=== PATIENT | male | born 1955 | race Caucasian/White ===

== ENCOUNTER 2017-10-27 09:46 | Inpatient (IN) | payer OTHER ==
--- NOTE | 2017-09-29 12:01 | PAT Medication Instructions ---
Service Date Sep 29, 2017. Current Home Medication List Acetaminophen (Tylenol), 1,000 MG PO PRN Eye Drops (Eye Drops), 1 DROP OPB BID Eye Drops (Eye Drops), 1 DROP OPB BID Lorazepam (Ativan), 0.5 MG PO BID Psyllium (Metamucil), 1 DOSE PO QPM [Losartan Hctz], 1 TAB PO QPM Medication Instructions For Your Scheduled Surgery - Hold the following medications 24 hours prior to surgery: [Losartan Hctz], 1 TAB PO QPM - Take the following medications the morning of surgery with a sip of water: Eye Drops (Eye Drops), 1 DROP OPB BID Eye Drops (Eye Drops), 1 DROP OPB BID Lorazepam (Ativan), 0.5 MG PO BID Acetaminophen (Tylenol), 1,000 MG PO PRN (okay to take up to 4 hours prior to surgery if needed) - Take the following medications as scheduled the night before surgery: Psyllium (Metamucil), 1 DOSE PO QPM Eye Drops (Eye Drops), 1 DROP OPB BID Eye Drops (Eye Drops), 1 DROP OPB BID Lorazepam (Ativan), 0.5 MG PO BID Acetaminophen (Tylenol), 1,000 MG PO PRN (if needed) If you have any questions please call us at [phone] or [phone] or [phone]
--- NOTE | 2017-09-29 12:40 | DIAGNOSTIC IMAGING REPORT ---
CHEST PREADMISSION(PA/LAT) HISTORY: 62 years-old Male PAT preoperative exam. No acute chest complaints COMPARISON: None available TECHNIQUE: PA and lateral views of the chest FINDINGS: Cardiac silhouette is upper limits of normal. There is atherosclerosis of the and tortuosity aorta. No pneumothorax, pleural effusion or focal airspace consolidation. Linear subsegmental opacities of the left lung base and right midlung suggest areas of atelectasis or scarring. The bones appear grossly intact. Cholecystectomy clips are noted. Degenerative changes are seen throughout the spine. IMPRESSION: No acute cardiopulmonary process. The above report was generated using voice recognition software. It may contain grammatical, syntax or spelling errors. Electronically signed by: Edd Zhou M.D. 09/29/2017 12:39 PM Dictated Date/Time: 09/29/2017 12:37 PM
[2017-09-29 13:23] LABS: BASO % 0.6 %; BASO ABS # 0.04 K/uL (0-0.2); COMPLETE YES; EOS % 1.1 %; HEMATOCRIT 43.9 % (42-52); IG% 0.1 %; LYMPH % 33.2 %; LYMPH ABS # 2.35 K/uL (1.2-3.4); MEAN CELL VOLUME 92.2 fL (80-100); MEAN CORPUSCULAR HEMOGLOBIN 30.7 pg (25-34); MEAN CORPUSCULAR HGB CONC 33.3 g/dl (32-36); MEAN PLATELET VOLUME 10.5 fL (7.4-10.4); MONO % 4.8 %; NEUT % 60.2 %; PLATELET COUNT 293 K/uL (130-400); RED BLOOD COUNT 4.76 M/uL (4.7-6.1); WHITE BLOOD COUNT 7.07 K/uL (4.8-10.8)
[2017-09-29 13:26] LABS: BUN/CREATININE RATIO 12.7 (10-20); CALCIUM 9.4 mg/dl (8.5-10.1); CREATININE 1.14 mg/dl (0.60-1.40); POTASSIUM 4.4 mmol/L (3.5-5.1); URINE APPEARANCE CLEAR (CLEAR); URINE BILIRUBIN NEG (NEG); URINE COLOR YELLOW; URINE NITRITE NEG (NEG); URINE PH 5.5 (4.5-7.5); URINE SPECIFIC GRAVITY 1.013 (1.000-1.030); UROBILINOGEN NEG (NEG); ZZUR CULT IF INDIC CLEAN CATCH NO
[2017-09-29 13:39] LABS: MANUAL MICROSCOPIC REQUIRED? NO; REVIEW REQ? NO
[2017-10-27] VITALS (7 sets, daily range): BP systolic 107–185; BP diastolic 63–104; PULSE 80–94; TEMP 36.4–36.9; O2SAT 95–100; Ht 175.3 cm; Wt 95.1 kg
[~2017-10-27] VITALS: Ht 175.3 cm; Wt 95.1 kg
[~2017-10-27 09:46] MED LIST: ACET-1256 PO; CEFAZOLIN 2000MG IV PUSH 10 ML IV SCH; EYED OPB; LACTATED RINGER'S 1000ML 1,000 ML IV SCH; LORA-741 PO; LOSARTAN HCTZ PO; PSYL0.524 PO
[2017-10-27] MEDS ORDERED: EpHEDrine SULFATE INJ 50 MG/ML AMP IV PRN (10:30)
[2017-10-27] MEDS ORDERED: ONDANSETRON INJ 2 MG/ML 2 ML VIAL IV PRN ×2 (10:30→14:45)
[2017-10-27] MEDS ORDERED: HYDROmorphone INJ 1 MG/ML SYR IV PRN (10:30)
[2017-10-27] MEDS ORDERED: ATROPINE SULFATE 0.1 MG/ML 5ML SYR IV PRN (10:30)
[2017-10-27] MEDS ORDERED: FENTANYL CITRATE INJ 50 MCG/1 ML 2 ML VIAL ONE ×4 (11:55→14:19)
[2017-10-27] MEDS ORDERED: MIDAZOLAM HCL 1 MG/ML 2ML VIAL ONE (11:55)
--- NOTE | 2017-10-27 12:03 | History & Physical Bridge Note ---
H&P Re-Evaluation Bridge Note: I have examined the patient, reviewed the History & Physical and in the interval since the performance of the History & Physical I have noted the following changes of clinical significance: No changes noted
--- NOTE | 2017-10-27 12:04 | History and Physical ---
History & Physical Date Oct 27, 2017. Chief Complaint Back and leg pain History of Present Illness The patient is a 62 year old male with complaints of back and leg pain Additional History Hepatic Disease: No Endocrine Disorder: No Kidney Disease: No Hypertension: Yes Heart Disease: No Bleeding Tendencies: No Infectious Diseases: No Allergies Coded Allergies: No Known Allergies (Unverified , 09/29/17) Home Medications Scheduled Acetaminophen (Tylenol), 1,000 MG PO PRN Lorazepam (Ativan), 0.5 MG PO BID Psyllium (Metamucil), 1 DOSE PO QPM [Losartan Hctz], 1 TAB PO QPM Diagnosis Lumbar spinal stenosis Plan of Treatment L4 to S1 lumbar laminectomy decompression with pedicle screw fixation placement of interbody device posterior lateral fusion application of autograft versus allograft BMP.
[2017-10-27] MEDS ORDERED: BUPIVACAINE/EPINEPHRINE 0.5% MPF 1:200,000 30 ML VIAL ONE (12:37)
[2017-10-27] MEDS ORDERED: BACITRACIN 50000 UNIT VIAL ONE (12:38)
[2017-10-27] MEDS ORDERED: HYDROmorphone INJ 2 MG/ML SYR/VIAL ONE ×2 (13:08→14:47)
[2017-10-27] MEDS ORDERED: LIDOCAINE HCL 2% 2 ML VIAL (20MG/ML) ONE (13:28)
[2017-10-27] MEDS ORDERED: DEXAMETHASONE SOD INJ 4 MG/ML VIAL ONE (13:28)
[2017-10-27] MEDS ORDERED: ONDANSETRON INJ 2 MG/ML 2 ML VIAL ONE ×2 (13:28→14:48)
[2017-10-27] MEDS ORDERED: PROPOFOL IV EMULSION 10 MG/ML 20 ML VIAL IV ONE (13:28)
[2017-10-27] MEDS ORDERED: FLOSEAL HEMOSTATIC MATRIX 10ML TOP ONE (14:34)
[2017-10-27] MEDS ORDERED: SODIUM CHLORIDE 0.9% 1000ML 1,000 ML IV SCH (14:41)
[2017-10-27] MEDS ORDERED: NALOXONE HCL 0.4 MG/1 ML VIAL/CARP IV PRN ×2 (14:45)
[2017-10-27] MEDS ORDERED: BISACODYL 10 MG SUPP PR PRN (14:45)
[2017-10-27] MEDS ORDERED: ALUMINUM/MAGNESIUM SUSP 30 ML UDC PO PRN (14:45)
[2017-10-27] MEDS ORDERED: hydrOXYzine HCL 25 MG TAB PO PRN (14:45)
[2017-10-27] MEDS ORDERED: SOD PHOSPHATE/SOD BIPHOSPHATE ENEMA 132 ML BTL PR PRN (14:45)
[2017-10-27] MEDS ORDERED: LORAZEPAM INJ 0.5 MG in SYRINGE 0 ML IV PRN (14:45)
[2017-10-27] MEDS ORDERED: ACETAMINOPHEN 500 MG TAB PO PRN (14:45)
[2017-10-27] MEDS ORDERED: MAGNESIUM HYDROXIDE SUSP 30 ML UDC PO PRN (14:45)
[2017-10-27] MEDS ORDERED: PROMETHAZINE HCL INJ 12.5 MG in SODIUM CHLORIDE 0.9% 50ML 50 ML IV PRN (14:45)
[2017-10-27] MEDS ORDERED: FAMOTIDINE 20 MG TAB PO PRN (14:45)
[2017-10-27] MEDS ORDERED: ACETAMINOPHEN IV 100 ML IV PRN (14:45)
[2017-10-27] MEDS ORDERED: DO NOT ADMINISTER PNEUMOCOCCAL VACCINE PRN ×2 (14:45)
[2017-10-27] MEDS ORDERED: DC PCA PRN (14:45)
[2017-10-27] MEDS ORDERED: DO NOT ADMINISTER FLU VACCINE PRN ×3 (14:45)
[2017-10-27] MEDS ORDERED: METOCLOPRAMIDE HCL INJ 5 MG/ML 2 ML VIAL IV PRN (14:45)
[2017-10-27] MEDS ORDERED: NEOSTIGMINE METHYLSULFATE 1 MG/ML 10ML VIAL ONE (14:48)
[2017-10-27] MEDS ORDERED: KETOROLAC TROMETHAMINE 30 MG/ML VIAL ONE (14:48)
[2017-10-27] MEDS ORDERED: GLYCOPYRROLATE INJ 0.2 MG/ML VIAL ONE (14:48)
--- NOTE | 2017-10-27 14:48 | [facility] Operative Report ---
Operative Report Operative Date Oct 27, 2017. Pre-Operative Diagnosis Lumbar Spinal Stenosis Post-Operative Diagnosis Same as preoperative Procedure(s) Performed #1 revision decompression medial facetectomy foraminotomies L4 5 L5-S1. #2 posterior spinal fusion L4 5 L5-S1. #3 placement posterior segmental instrumentation using OrthoSorb screws L4 5 L5-S1. #4 interbody fusion L4 5. #5 placement peek cage 13 x 26 mm at L4 5. #6 placement locally harvested morcellized autograft in the posterior lateral gutters. #7 placement infuse collagen sponge combined with Master graft in the posterior lateral gutters and ostial amp bone graft in the interbody space. Surgeon Dr. Anthony Carney Automatic Dry Starch Operator Surgeon(s) Candi Epstein PA-C Estimated Blood Loss 250ml Findings Severe spinal stenosis Specimens None per surgeon Description of Procedure Patient was met with preoperatively case discussed all questions addressed. After informed consent obtained patient was taken to the operative suite underwent intubation and placed in a prone position the James table on top of the Maurisio frame. All bony prominences were well-padded eyes inspected to ensure no external pressure placed upon them. This point the lumbar spines prepped draped nostril fashion. Sharp dissection with the assistance of Bovie cautery was performed onto an exposing the remaining lamina and the transverse processes of L4-L5 and sacral alar bilaterally. From a caudal to cephalad fashion revision complete laminectomy of L5 and L4 was performed including medial facetectomies foraminotomies. After complete decompression pedicle screws are placed in L5 4 L4 5 and S1 levels bilaterally with assistance of fluoroscopy the purposes yamileth placed. Through a transforaminal approach on the left complete discectomy of L4 5 was performed and plate created to subcortical bleeding bone and a 13 x 26 mm peek cage filled with ostial amp bone graft tapped in position. The rods were then compressed locked into final position bilaterally the transverse processes of L4 L5 and sacral alar burred to subcortical bleeding bone. Infuse collagen sponge mask graft locally harvested morcellized autograft was placed the posterior gutters. 15 round RICARDO drain inserted. Incision was then closed with 1 Vicryl in the fascia 2-0 Vicryl subcutaneous tediously 4 Monocryl for final skin closure Steri-Strips sterile dressings placed. Patient we can take PACU stable condition. Please note Candi Avelar was present at the entire procedure involved in patient positioning complex portions of the surgery and final skin closure. I attest to the content of the Intraoperative Record and any orders documented therein. Any exceptions are noted below.
--- NOTE | 2017-10-27 14:53 | DIAGNOSTIC IMAGING REPORT ---
LUMBAR SPINE 2 OR 3 VIEW CLINICAL HISTORY: L4-S1 LAMINECTOMY AND DECOMPRESSION TECHNIQUE: Image intensifier COMPARISON STUDY: None FINDINGS: Image intensifier was utilized for laminectomy and fusion from L4 through S1. A disc spacer is present at L4-L5. Vertebral body alignment is anatomic. IMPRESSION: L4-S1 laminectomy and fusion The above report was generated using voice recognition software. It may contain grammatical, syntax or spelling errors. Electronically signed by: Nikko Choi M.D. 10/27/2017 2:52 PM Dictated Date/Time: 10/27/2017 2:52 PM
[2017-10-27] MEDS ORDERED: ESMOLOL HCL 10 MG/ML 10 ML VIAL ONE (14:56)
[2017-10-27] MEDS ORDERED: HYDROmorphone HCL 0.5MG/ML 50 ML CASSETTE ONE (15:03)
[2017-10-27] MEDS: FENTANYL CITRATE INJ 50 MCG/1 ML 2 ML VIAL IV PRN ×4 (15:14→15:30)
--- NOTE | 2017-10-27 15:32 | Anesthesiology Progress Note ---
Anesthesia Post Op Note Date & Time Oct 27, 2017 at 15:31 Vital Signs Pain Intensity: 8 Vital Signs Past 12 Hours Date Time Temp Pulse Resp B/P (MAP) Pulse Ox O2 Delivery O2 Flow Rate FiO2 10/27/17 15:27 87 13 10/27/17 15:27 90 13 99 10/27/17 15:25 171/89 10/27/17 15:22 84 17 99 10/27/17 15:22 86 17 10/27/17 15:21 161/100 10/27/17 15:19 89 15 10/27/17 15:19 89 15 100 10/27/17 15:15 169/92 10/27/17 15:14 83 20 10/27/17 15:14 83 20 100 10/27/17 15:11 162/95 10/27/17 15:09 78 11 10/27/17 15:09 78 11 100 10/27/17 15:06 159/92 10/27/17 15:04 95 22 10/27/17 15:04 96 22 100 10/27/17 15:00 168/92 10/27/17 14:59 36.4 93 16 165/98 (109) 100 Nasal Cannula 10 Oxymask 10/27/17 10:08 36.9 84 20 165/104 100 Room Air Notes Mental Status: alert / awake / arousable, participated in evaluation Pt Amnestic to Procedure: Yes Nausea / Vomiting: adequately controlled Pain: adequately controlled Airway Patency, RR, SpO2: stable & adequate BP & HR: stable & adequate Hydration State: stable & adequate Anesthetic Complications: no major complications apparent
[2017-10-27] MEDS: HYDROmorphone HCL 0.5MG/ML 50 ML CASSETTE IV PRN ×2 (16:04→22:23)
[2017-10-27] MEDS: SODIUM CHLORIDE 0.9% 1000ML 1,000 ML IV SCH ×2 (16:55→23:26)
[2017-10-27] MEDS: LOSARTAN POTASSIUM 50 MG TAB PO SCH (20:51)
[2017-10-27] MEDS: CEFAZOLIN IV 2,000 MG in SYRINGE 0 ML IV SCH (20:51)
[2017-10-27] MEDS: DOCUSATE SODIUM/SENNA 50/8.6MG TAB PO SCH (20:51)
[2017-10-27] MEDS: LOSARTAN/HCTZ 50-12.5 EA TAB PO SCH (20:51)
[2017-10-27] MEDS: DEXAMETHASONE INJ 6 MG in SYRINGE 0 ML IV SCH (21:59)
[2017-10-28 03:55] VITALS: BP 116/73; PULSE 82; TEMP 36.9; O2SAT 96
[2017-10-28] MEDS: CEFAZOLIN IV 2,000 MG in SYRINGE 0 ML IV SCH (04:00)
[2017-10-28] MEDS ORDERED: NURSING DECISION MEDICATION ORDER SCH (05:15)
[2017-10-28] MEDS ORDERED: HYDROmorphone INJ 0.5 MG/0.5 ML SYR IV PRN (06:00)
[2017-10-28] MEDS: DEXAMETHASONE INJ 6 MG in SYRINGE 0 ML IV SCH ×2 (06:05→13:15)
[2017-10-28 06:08] LABS: COMPLETE YES; HEMATOCRIT 35.6 % (42-52); IG% 0.1 %; LYMPH % 6.6 %; LYMPH ABS # 0.89 K/uL (1.2-3.4); MEAN CORPUSCULAR HEMOGLOBIN 30.5 pg (25-34); MEAN CORPUSCULAR HGB CONC 33.1 g/dl (32-36); MEAN PLATELET VOLUME 10.2 fL (7.4-10.4); MONO % 3.5 %; NEUT % 89.8 %; PLATELET COUNT 261 K/uL (130-400); RED BLOOD COUNT 3.87 M/uL (4.7-6.1); WHITE BLOOD COUNT 13.51 K/uL (4.8-10.8)
[2017-10-28 06:57] LABS: BUN/CREATININE RATIO 15.3 (10-20); CALCIUM 8.1 mg/dl (8.5-10.1); CREATININE 0.87 mg/dl (0.60-1.40); POTASSIUM 3.8 mmol/L (3.5-5.1)
[2017-10-28 07:05] VITALS: BP 134/76; PULSE 82; TEMP 36.5; O2SAT 96
[2017-10-28] MEDS ORDERED: RXC5 PO (07:41)
--- NOTE | 2017-10-28 07:42 | Discharge Instructions ---
Discharge Instructions Date of Service Oct 28, 2017. Admission Reason for Admission: Spinal Stenosis Discharge Discharge Diagnosis / Problem: lumbar spinal stenosis Discharge Goals Goal(s): Improve function Activity Recommendations Activity Limitations: per Instructions/Follow-up section . Instructions / Follow-Up Instructions / Follow-Up ACTIVITY RECOMMENDATIONS: SELF CARE INSTRUCTIONS AFTER THORACIC/LUMBAR FUSIONS 1. You may walk to your tolerance. It is good exercise for your legs and back. Expect some back and intermittent leg aches and pains. 2. You may perform "counter-top" level activities (make a sandwich, chin with a project, etc.). 3. No bending or lifting of more than 10 pounds or back twisting of any nature (roll like a log when turning in bed). 4. You may ride in a car for 20-30 minutes at a time. No driving until after your first visit with your doctor. 5. Frequent changes of position and restricting sitting to 30 minutes at a time will help limit the amount of back spasms and stiffness you may experience. 6. You may discontinue the use of ambulatory aids (cane, crutches, etc.) once your strength and confidence allow. 7. You may information technology architect the shower and let water strike your incision when you arrive home at least once daily. Do not take a tub bath, sit in a hot tub or go into a swimming pool until after your first recheck in the office. SPECIAL CARE INSTRUCTIONS: VERY IMPORTANT TO READ AND REVIEW A. Your surgical incision has been closed with a cosmetic suture under the skin that will dissolve in about 6 weeks. In 14 days, you can use a pair of clean scissors and cut the suture that is left outside of the skin at the ends of your incision. 1. The small skin tapes can be removed 7 days after surgery if they have not fallen off by that point. 2. You may keep the wound open to air as much as possible to promote healing after post-op day number 5 unless told otherwise by your doctor. 3. If you think the wound looks like it is becoming infected (redness or worsening drainage) and/or you are experiencing fever, chill or worsening back pain and muscle spasms, contact the office so that we may evaluate you as soon as possible. B. Complications are uncommon, but please contact us if you have any signs or symptoms of: 1. wound infection (fever higher than 102.5 degrees F, redness, separation of wound, drainage, or increasing pain from the incision) 2. blood clots in legs (pain, swelling, redness and warmth in legs) 3. urinary tract infection (fever higher than 102.5 degrees F, burning upon urination or increased frequency of urination) 4. nerve problems (inability to walk on your toes or heels, numbness, loss of bowel or bladder control) 5. any other symptoms that concern you C. Please call the office at if you have any concerns or questions about your operation or recovery. D. No smoking! Smoking drastically decreases the chance of a solid fusion. E. Do not take any anti-inflammatory medications (Indocin, Advil, Motrin, Aspirin, Naprosyn, etc.) as these may inhibit the chance of a solid fusion. Tylenol is okay to take for pain. MANAGING PAIN AFTER SPINAL SURGERY 1. Narcotic medication is intended for short-term use and will be provided for surgical pain. Surgical pain usually lasts for a period of 4-6 weeks. Narcotic medication includes Percocet, Vicodin, Darvocet, Tylenol #3 or Lortab. 2. Longer-term pain is more appropriately treated with non-narcotic medication such as Tylenol ES. 3. Muscle spasm is not appropriately treated with narcotics. Muscle relaxers such as Soma, Flexeril or Skelaxin can be used along with Tylenol ES. 4. Remember that we all live with some "aches and pains". This is not unusual or uncommon after an injury or as we get older. a. Back pain is expected and may include muscle spasms for 4 to 6 weeks after surgery. The pain should gradually improve. If the pain worsens for no apparent reason, please contact the office. b. Intermittent leg pain may also be experienced and should not be concerned about unless it worsens for no apparent reason. If so, please contact the office. 5. We will provide appropriate medication within the normal guidelines of their prescribed use. We will also be very cautious and aware of potential abuse and extended duration of patients' medication needs. a. Pain medications are for your comfort and to assist with sleep and rest so that the tissue can heal. They are not provided in order to return to normal activity and should not be used through the day. To do so or worsening pain at night can result from ongoing tissue damage and development of tolerance to the prescribed medicine. 6. Please allow 2-3 days to process refills. Prescriptions will not be mailed but must be picked up at the office. FOLLOW UP VISIT: Keep your scheduled follow-up appointment. Any questions, please call the office at . Current Hospital Diet Patient's current hospital diet: Regular Diet Discharge Diet Recommended Diet: Regular Diet Procedures Procedures Performed: #1 revision decompression medial facetectomy foraminotomies L4 5 L5-S1. #2 posterior spinal fusion L4 5 L5-S1. #3 placement posterior segmental instrumentation using OrthoSorb screws L4 5 L5-S1. #4 interbody fusion L4 5. #5 placement peek cage 13 x 26 mm at L4 5. #6 placement locally harvested morcellized autograft in the posterior lateral gutters. #7 placement infuse collagen sponge combined with Master graft in the posterior lateral gutters and ostial amp bone graft in the interbody space. Pending Studies Studies pending at discharge: no Medical Emergencies . Who to Call and When: Medical Emergencies: If at any time you feel your situation is an emergency, please call 911 immediately. . Non-Emergent Contact Non-Emergency issues call your: Primary Care Provider . "Provider Documentation" section prepared by Anthony Carney. . VTE Core Measure Inpt VTE Proph given/why not?: Yuri Maurice, SCD's
--- NOTE | 2017-10-28 08:52 | Anesthesiology Progress Note ---
Anesthesia Post Op Note Date & Time Oct 28, 2017 at 08:52 Vital Signs Vital Signs Past 12 Hours Date Time Temp Pulse Resp B/P (MAP) Pulse Ox O2 Delivery O2 Flow Rate FiO2 10/28/17 07:05 36.5 82 16 134/76 (95) 96 Room Air 10/28/17 03:55 36.9 82 16 116/73 (87) 96 Room Air 10/27/17 23:25 36.8 81 16 107/63 (78) 95 Room Air 10/27/17 22:40 Room Air Notes Mental Status: alert / awake / arousable, participated in evaluation Pt Amnestic to Procedure: Yes Nausea / Vomiting: adequately controlled Pain: adequately controlled Airway Patency, RR, SpO2: stable & adequate BP & HR: stable & adequate Hydration State: stable & adequate Neuraxial Anesthesia: sensory block resolved Anesthetic Complications: no major complications apparent
[2017-10-28] MEDS: LORAZEPAM 0.5 MG TAB PO PRN (13:21)
[2017-10-28 13:30] VITALS: BP 144/81; PULSE 85; TEMP 36.7; O2SAT 97
[2017-10-28] MEDS ORDERED: KETOROLAC TROMETHAMINE 30 MG/ML VIAL IV PRN (14:30)
--- NOTE | 2017-10-28 14:31 | Progress Note ---
Progress Note Date of Service Oct 28, 2017. Progress Note Patient is postoperative day #1. Back pain is controlled. Leg symptoms markedly improved. On exam is good strength testing. Assessment status post lumbar decompression fusion. Planned this time will continue advance his bowel regiment increased physical therapy anticipate home once .
[2017-10-28 16:15] VITALS: BP 152/88; PULSE 95; TEMP 37.1; O2SAT 96
[2017-10-28] MEDS: OXYCODONE HCL IR 5 MG TAB (IMMEDIATE RELEASE) PO PRN ×2 (16:59→21:01)
[2017-10-28] MEDS: LOSARTAN POTASSIUM 50 MG TAB PO SCH (21:00)
[2017-10-28] MEDS: LOSARTAN/HCTZ 50-12.5 EA TAB PO SCH (21:01)
[2017-10-28] MEDS: DOCUSATE SODIUM/SENNA 50/8.6MG TAB PO SCH (21:01)
[2017-10-28 22:56] VITALS: BP 127/76; PULSE 67; TEMP 36.7; O2SAT 94
[2017-10-29] MEDS: POLYETHYLENE (MIRALAX) 17 GM PACK PO SCH ×2 (05:31→12:00)
[2017-10-29 07:17] VITALS: BP 151/83; PULSE 71; TEMP 36.9; O2SAT 97
[2017-10-29] MEDS ORDERED: NURSING VERBAL MED ORDER ONE (12:15)
--- NOTE | 2017-10-29 13:23 | Progress Note ---
Progress Note Date of Service Oct 29, 2017. Progress Note Patient is postop day #2. Back pain is improved leg symptoms improved. Exam bleeding without difficulty. RICARDO drain decreasing nicely. On exam is excellent strength testing appears comfortable. Assessment status post lumbar decompression fusion replant this time will continue advance his bowel regiment physical therapy anticipate discharge home tomorrow.
[2017-10-29] MEDS: OXYCODONE HCL IR 5 MG TAB (IMMEDIATE RELEASE) PO PRN ×2 (14:51→21:04)
[2017-10-29] MEDS: LORAZEPAM 0.5 MG TAB PO PRN (14:51)
[2017-10-29 15:10] VITALS: BP 113/76; PULSE 74; TEMP 36.7; O2SAT 97
[2017-10-29] MEDS: LOSARTAN/HCTZ 50-12.5 EA TAB PO SCH (21:02)
[2017-10-29] MEDS: LOSARTAN POTASSIUM 50 MG TAB PO SCH (21:03)
[2017-10-29] MEDS: DOCUSATE SODIUM/SENNA 50/8.6MG TAB PO SCH (21:03)
[2017-10-29 23:10] VITALS: BP 122/72; PULSE 72; TEMP 37; O2SAT 97
[2017-10-30] MEDS: LORAZEPAM 0.5 MG TAB PO PRN (00:03)
[2017-10-30 06:50] VITALS: BP 125/76; PULSE 76; TEMP 36.6; O2SAT 97
[2017-10-30] MEDS: OXYCODONE HCL IR 5 MG TAB (IMMEDIATE RELEASE) PO PRN (07:57)
--- NOTE | 2017-10-30 08:34 | Discharge Summary ---
Orthopedic Discharge Summary Admission Date/Reason Oct 27, 2017 at 12:00 Spinal Stenosis. Discharge Date/Disposition Oct 30, 2017 Home Diagnosis Principal Diagnosis: Lumbar spinal stenosis Admission Physical Exam As per Admitting History & Physical. Hospital Course Patient underwent multilevel lumbar decompression fusion tolerated this well as taken to the orthopedic 4 postop we. Postoperative day #1 is up and amatory progressed to postoperative day #2. RICARDO drain decreased appropriately. Subsequently discharged home on postoperative day #3 discharge orders and instructions found on the chart for further review. Discharge Instructions Please refer to the electronic Patient Visit Report (Discharge Instructions) for additional information.
[2017-10-30 09:44] VITALS: BP 125/76; PULSE 76; TEMP 36.6; O2SAT 97
== END 2017-10-30 13:48 | disposition home or self-care (01) | DRG 455 ==
LOC: C.ACU 09:46 → C.3E 12:00 → ENRESERV 15:48
PROVIDERS: ADMIT Orthopaedic Surgery Orthopaedic Surgery of the Spine; ATTEND Orthopaedic Surgery Orthopaedic Surgery of the Spine
PROC: 01NB0ZZ Release Lumbar Nerve, Open Approach (ICD-10-PCS; principal; 2017-10-27 11:45)
PROC: 0ST20ZZ Resection of Lumbar Vertebral Disc, Open Approach (ICD-10-PCS; principal; 2017-10-27 11:45)
PROC: 0SG00AJ Fusion of Lumbar Vertebral Joint with Interbody Fusion Device, Posterior Approach, Anterior Column, Open Approach (ICD-10-PCS; principal; 2017-10-27 11:45)
PROC: 0SG0071 Fusion of Lumbar Vertebral Joint with Autologous Tissue Substitute, Posterior Approach, Posterior Column, Open Approach (ICD-10-PCS; principal; 2017-10-27 11:45)
PROC: 0SG3071 Fusion of Lumbosacral Joint with Autologous Tissue Substitute, Posterior Approach, Posterior Column, Open Approach (ICD-10-PCS; principal; 2017-10-27 11:45)
DX: M48.061 Spinal stenosis, lumbar region without neurogenic claudication (principal); I10 Essential (primary) hypertension; E66.9 Obesity, unspecified; Z68.30 Body mass index [BMI] 30.0-30.9, adult; Z79.899 Other long term (current) drug therapy